=== PATIENT | female | born 1985 | race Caucasian/White ===

== ENCOUNTER 2016-08-27 18:44 | Emergency (ER) | payer SELFPAY ==
[2016-08-27 19:40] VITALS: TEMP 98.3
--- NOTE | 2016-08-27 20:27 | ED.PDOC ---
History of Present Illness - General Chief Complaint: Skin/Abrasion/Tear Time Seen by Provider: 08/27/16 18:44 Source: patient Exam Limitations: no limitations - History of Present Illness Initial Comments: The patient is a 31-year-old female presenting to the emergency room secondary to mild erythema and swelling to the anterior lateral left ankle starting approximately 24 hours ago. The patient does not remember injuring the ankle. She does not remember any bug bites. There is no obvious abscess underlying. There is mild swelling. There is mild tenderness to palpation. The pain is not made any worse with movement. There is no pain in the posterior calf. There is no shortness of breath. There is no swelling otherwise to the ankle. I see no skin lacerations. No other areas of injury. No fevers. Timing/Duration: 24 hours Severity: mild Improving Factors: nothing Worsening Factors: nothing Associated Symptoms: denies symptoms Allergies/Adverse Reactions: Allergies Lisinopril Allergy (Verified 08/27/16 19:46) Losartan Allergy (Verified 08/27/16 19:46) Prednisone Allergy (Verified 08/27/16 19:46) Review of Systems - Review of Systems Constitutional: States: no symptoms reported EENTM: States: no symptoms reported Respiratory: States: no symptoms reported Cardiology: States: no symptoms reported Gastrointestinal/Abdominal: States: no symptoms reported Genitourinary: States: no symptoms reported Musculoskeletal: States: see HPI Skin: States: see HPI Neurological: States: no symptoms reported Endocrine: States: no symptoms reported Hematologic/Lymphatic: States: no symptoms reported All other Systems: No Change from Baseline Past Medical History (General) - Patient Medical History Hx Seizures: No Hx Stroke: No Hx Dementia: No Hx Asthma: No Hx of COPD: No Hx Cardiac Disorders: No Hx Congestive Heart Failure: No Hx Pacemaker: No Hx Hypertension: Yes Hx Thyroid Disease: No Hx Diabetes: No Hx Gastroesophageal Reflux: No Hx Renal Disease: No Hx Cancer: No Hx of HIV: No Hx Hepatitis C: No Hx MRSA: No MRSA Source:: Wound - Vaccination History Hx Tetanus, Diphtheria Vaccination: No Hx Influenza Vaccination: No Hx Pneumococcal Vaccination: No Immunizations Up to Date: Yes - Social History Hx Tobacco Use: No Hx Chewing Tobacco Use: No Hx Alcohol Use: Yes - occasional Hx Substance Use: No Hx Substance Use Treatment: No Hx Depression: No Feels Threatened In Home Enviroment: No Feels Threatened In a Relationship: No Hx Physical Abuse: No Hx Emotional Abuse: No Hx Suspected Abuse: No - Female History Patient is a Female of Child Bearing Age (10 -59 yrs old): Yes Hx Last Menstrual Period: 08/11/14 Patient : No Expected Date of Delivery:: 08/04/13 - Triage Comment ED Triage Comment: no signs of distress, distal pulse sensation and motor function within normal limits, no complaints of SOB, no chest pain, no focal neuro deficits. Family Medical History - Family History Father Family History: No Known Living Status: Still Living Mother Family History: No Known Living Status: Still Living Physical Exam - Physical Exam General Appearance: Alert, Comfortable, No apparent distress Eye Exam: bilateral normal Neck: full range of motion Respiratory: lungs clear, normal breath sounds, no respiratory distress, no accessory muscle use Cardiovascular/Chest: normal peripheral pulses, regular rate, rhythm, no edema Peripheral Pulses: radial,right: 2+, radial,left: 2+, dorsalis pedis,right: 2+, dorsalis pedis,left: 2+, posterior tibialis,right: 2+, posterior tibialis,left: 2+ Gastrointestinal/Abdominal: other - obese Rectal Exam: deferred Back Exam: normal inspection, no CVA tenderness, no vertebral tenderness Extremity: normal range of motion, no pedal edema, no calf tenderness, normal capillary refill, swelling - see history of present illness Neurologic: alert, normal mood/affect, oriented x 3 Skin Exam: normal color Comments: Vital Signs - 24 hr 08/27/16 18:44 Temperature 98.3 F Pulse Rate [ 100 H pulse ox] Respiratory 16 Rate Blood Pressure 147/87 [left upper arm ] O2 Sat by Pulse 94 L Oximetry Progress - Progress Progress: 08/27/16 20:28 the patient is a 31-year-old female presenting due to what appears to be a noninfectious cellulitis the anterior/lateral left ankle for the last 24 hours. There are no clinical signs of a deep venous thrombosis. X-ray of the tib-fib were negative for any obvious pathology. I have encouraged the patient to outline the area of redness for following over the next few days. She can also take a good picture with her cell phone for comparison if needed at a later date. Motrin can be used for discomfort relief. she can follow up with her primary care doctor early next week if the area is worsening or not improving. She can return here to the emergency room if there is obvious acute worsening or new symptoms. Departure - Departure Clinical Impression: Ankle inflammation Qualifiers: Laterality: left Qualified Code(s): M19.072 - Primary osteoarthritis, left ankle and foot Disposition: Discharge to Home or Self Care Condition: Fair Departure Forms: ED Discharge - Pt. Copy, Patient Portal Self Enrollment Instructions: Tenosynovitis Diet: regular diet Activity: increase activity as tolerated Referrals: Mayra Alves NP [Primary Care Provider] - 1-2 Weeks Additional Instructions: the patient is a 31-year-old female presenting due to what appears to be a noninfectious cellulitis the anterior/lateral left ankle for the last 24 hours. There are no clinical signs of a deep venous thrombosis. X-ray of the tib-fib were negative for any obvious pathology. I have encouraged the patient to outline the area of redness for following over the next few days. She can also take a good picture with her cell phone for comparison if needed at a later date. Motrin can be used for discomfort relief. she can follow up with her primary care doctor early next week if the area is worsening or not improving. She can return here to the emergency room if there is obvious acute worsening or new symptoms.
[2016-08-27 20:48] VITALS: BP 167/89; O2SAT 97
--- NOTE | 2016-08-27 21:13 | RAD ---
EXAM DESCRIPTION: Tibia/Fibula,Left CLINICAL HISTORY: 31 years, Female, pain over distal 1/3 of fib, no trauma COMPARISON: None. FINDINGS: Two views the LEFT tibia and fibula were performed. No localized soft tissue swelling or radiopaque foreign body is identified. Bone mineralization is within normal limits. No fracture is seen. No bony erosion or periosteal reaction. The ankle mortise is congruent and the talar dome is intact. No suspicious calcification. IMPRESSION: No finding to explain this patient's fibular pain. Electronically signed by: Nusrat Melara MD 08/27/2016 9:13 PM CDT
== END 2016-08-27 20:50 | disposition home or self-care (01) ==
LOC: ER 18:44
DX: M19.072 Primary osteoarthritis, left ankle and foot (principal); L03.116 Cellulitis of left lower limb; I10 Essential (primary) hypertension; Z88.8 Allergy status to other drugs, medicaments and biological substances

== ENCOUNTER 2016-12-04 20:14 | Emergency (ER) | payer SELFPAY ==
[2016-12-04 20:41] VITALS: TEMP 99.2; O2SAT 96
--- NOTE | 2016-12-04 20:47 | ED.PDOC ---
History of Present Illness - General Chief Complaint: Lower Extremity Injury Stated Complaint: right calf pain from falling when playing volleyba Time Seen by Provider: 12/04/16 20:33 Source: patient, RN notes reviewed, Vital Signs reviewed Exam Limitations: no limitations - History of Present Illness Initial Comments: Patient comes in via private vehicle with c/o right calf pain. She was playing volleyball and when she came down on her R leg she felt a pop in her calf and a sudden onset of pain. Occurred: just prior to arrival Pain - Lower Extremity: severe: Right Calf Method of Injury: sports injury Improving Factors: immobilization Worsening Factors: movement Allergies/Adverse Reactions: Allergies Lisinopril Allergy (Verified 12/04/16 20:41) Losartan Allergy (Verified 12/04/16 20:41) Prednisone Allergy (Verified 12/04/16 20:41) Home Medications: Ambulatory Orders NK [NK] 12/04/16 Review of Systems - Review of Systems Constitutional: States: no symptoms reported Respiratory: States: no symptoms reported Cardiology: States: no symptoms reported Musculoskeletal: States: see HPI Skin: States: no symptoms reported Neurological: States: numbness - right lower leg down to ankle All other Systems: No Change from Baseline Past Medical History (General) - Patient Medical History Hx Seizures: No Hx Stroke: No Hx Dementia: No Hx Asthma: No Hx of COPD: No Hx Cardiac Disorders: No Hx Congestive Heart Failure: No Hx Pacemaker: No Hx Hypertension: Yes Hx Thyroid Disease: No Hx Diabetes: No Hx Gastroesophageal Reflux: No Hx Renal Disease: No Hx Cancer: No Hx of HIV: No Hx Hepatitis C: No Hx MRSA: No MRSA Source:: Wound Surgical History: Hysterectomy - Vaccination History Hx Tetanus, Diphtheria Vaccination: No Hx Influenza Vaccination: No Hx Pneumococcal Vaccination: No Immunizations Up to Date: No - Social History Hx Tobacco Use: No Hx Chewing Tobacco Use: No Hx Alcohol Use: Yes - social Hx Substance Use: No Hx Substance Use Treatment: No Hx Depression: No Feels Threatened In Home Enviroment: No Feels Threatened In a Relationship: No Hx Physical Abuse: No Hx Emotional Abuse: No Hx Suspected Abuse: No - Female History Hx Last Menstrual Period: 08/11/14 Patient : No Expected Date of Delivery:: 08/04/13 Family Medical History - Family History Father Family History: No Known Living Status: Still Living Mother Family History: No Known Living Status: Still Living Physical Exam - Physical Exam General Appearance: Alert, No apparent distress, Obese, Well Developed, Well Groomed, Well Hydrated, Well Nourished, Other - In obvious pain Cardiovascular/Respiratory: normal peripheral pulses, no respiratory distress Thigh/Hip: normal inspection, non-tender, no evidence of injury, normal ROM Leg: pain - Right calf, soft tissue tenderness - Right calf, swelling - Right calf Knee: normal inspection, non-tender, no evidence of injury, normal ROM Ankle: normal inspection, non-tender, no evidence of injury, normal ROM Foot: normal inspection, non-tender, no evidence of injury, normal ROM Neuro/Tendon: normal sensation, normal motor functions, normal tendon functions Mental Status: alert, oriented x 3 Skin: normal color, warm/dry Comments: Vital Signs - 8 hr 12/04/16 20:35 Temperature 99.2 F Pulse Rate [ 105 H monitor] Respiratory 20 Rate Blood Pressure 154/97 [Left Arm] O2 Sat by Pulse 96 Oximetry Progress - Progress Progress: 12/04/16 21:28 Discussed X-ray result. ? Soleus rupture. Will place in Ortho Boot and crutches Follow up with Dr. Alcaraz - EKG/XRAY/CT XRAY: Tib/Fib: no acute findings Procedures - Splinting Right Leg Pre-Made Type: Orthoboot Pre-Proc Neuro Vasc Exam: normal Post-Proc Neuro Vasc Exam: normal Departure - Departure Clinical Impression: Calf pain Qualifiers: Laterality: right Qualified Code(s): M79.661 - Pain in right lower leg ICD-10 Supporting Text: ? soleus rupture Time of Disposition: 21:39 Disposition: Discharge to Home or Self Care Condition: Good Departure Forms: ED Discharge - Pt. Copy, Patient Portal Self Enrollment Instructions: DI for Calf Muscle Strain Diet: resume usual diet Activity: other - Use crutches and Orthoboot when up and about Referrals: Mayra Alves NP [Primary Care Provider] - 1-2 Weeks Christo Alcaraz MD [Active Staff] - 1-5 Days Home Medications: Ambulatory Orders NK [NK] 12/04/16
[2016-12-04] MEDS ORDERED: ACETAMINOPHEN W/COD #3 TAB 1 EA TAB PO ONE (20:48)
--- NOTE | 2016-12-04 21:23 | RAD ---
EXAM DESCRIPTION: Tibia/Fibula,Right CLINICAL HISTORY: 31 years Female pain in calf/felt a pop COMPARISON: None. TECHNIQUE: RIGHT tibia fibula, two views FINDINGS: No acute fractures or dislocations are identified. No osseous destructive lesions. IMPRESSION: No acute fracture is identified. Electronically signed by: Suni Harrison 12/04/2016 9:22 PM CDT
[2016-12-04] MEDS ORDERED: ACETAMINOPHEN W/COD #3 TAB (ER Disp) PO ONE (21:48)
[2016-12-04 22:02] VITALS: BP 148/90
== END 2016-12-04 22:02 | disposition home or self-care (01) ==
LOC: ER 20:14
DX: M79.661 Pain in right lower leg (principal); Z88.8 Allergy status to other drugs, medicaments and biological substances

== ENCOUNTER → 2016-12-19 | Outpatient (CLI) | payer SELFPAY ==
--- NOTE | 2016-12-19 14:57 | MRI ---
Study: MRI of the Right Tibia/Fibula. Indication: MID CALF PAIN RT SIDE Technique: Multiplanar, multi sequence MRI of the right tibial/fibula was obtained without intravenous contrast. Comparison: Radiographs December 04, 2016. FINDINGS: Acute partial-thickness tearing of the mid substance of the plantaris tendon noted at the mid calf level where it is ill-defined but without definitive transection. There is an associated large intramuscular hematoma tracking between the medial gastrocnemius and medial soleus musculature. It measures up to 7.2 cm transverse by 2.5 cm AP by 16.5 cm craniocaudal. No tear of the soleus or gastrocnemius musculature. Mild circumferential subcutaneous edema. No acute fracture of the tibia or fibula. Red marrow reconversion noted. IMPRESSION: Partial thickness tearing of the mid plantaris tendon without complete transection. Associated large multilobulated hematoma tracks between the medial soleus and medial gastrocnemius medius musculature. Electronically signed by: Óscar Sheikh MD 12/19/2016 2:56 PM CDT
== END | disposition home or self-care (01) ==
LOC: MRI 11:00
PROVIDERS: ATTEND Orthopaedic Surgery
DX: M23.611 Other spontaneous disruption of anterior cruciate ligament of right knee (principal)

== ENCOUNTER → 2017-02-23 | Outpatient (CLI) | payer SELFPAY ==
--- NOTE | 2017-02-24 00:28 | RAD ---
EXAM DESCRIPTION: Hand,Right 3 Views CLINICAL HISTORY: HAND PAIN COMPARISON: None. FINDINGS: 3 views of the right hand. No acute fracture or dislocation. Normal osseous mineralization. Joint spaces preserved. IMPRESSION: 1. No acute fracture or dislocation. Electronically signed by: Willy Bowers 02/24/2017 12:27 AM CDT
== END | disposition home or self-care (01) ==
LOC: RAD 09:08
PROVIDERS: ATTEND Orthopaedic Surgery
DX: M79.641 Pain in right hand (principal)

== ENCOUNTER 2017-07-25 13:08 | Emergency (ER) | payer SELFPAY ==
[2017-07-25 13:19] VITALS: BP 142/98; TEMP 101; O2SAT 98
[2017-07-25] MEDS ORDERED: ACETAMINOPHEN 325 MG TAB PO ONE (13:22)
[2017-07-25] MEDS ORDERED: OSELTAMIVIR 75 MG CAP PO ONE (13:55)
[2017-07-25] MEDS ORDERED: AZITHROMYCIN 250 MG TAB PO ONE (13:55)
--- NOTE | 2017-07-25 14:00 | ED.PDOC ---
History of Present Illness - General Chief Complaint: Fever Stated Complaint: Cough, congestion, urgency Time Seen by Provider: 07/25/17 13:11 Source: patient Exam Limitations: no limitations - History of Present Illness Initial Comments: The patient is a 32-year-old female presenting to emergency room secondary to body aches along with a cough and a mild sore throat for the last 24 hours. Mild nausea. No yncope or near Syncope. No shortness of breath. No chest pain. No altered mental status. No nuchal rigidity or meningeal signs. Timing/Duration: 24 hours Severity: moderate Improving Factors: nothing Worsening Factors: nothing Associated Symptoms: cough, fever/chills, malaise Allergies/Adverse Reactions: Allergies Lisinopril Allergy (Verified 07/25/17 13:22) Anaphylaxis Losartan Allergy (Verified 12/04/16 20:41) Prednisone Adverse Reaction (Verified 07/25/17 13:22) Other Takes "her taste away" Home Medications: Ambulatory Orders Azithromycin 500 mg PO DAILY #5 tab 07/25/17 Oseltamivir Capsule [Tamiflu] 75 mg PO BID 5 Days #10 capsule 07/25/17 Terbinafine HCl 250 mg PO DAILY 07/25/17 hydrOXYzine HCl [Atarax] 25 mg PO BEDTIME 07/25/17 Review of Systems - Review of Systems Constitutional: States: fever, malaise EENTM: States: throat pain Respiratory: States: cough, wheezing Cardiology: States: no symptoms reported Gastrointestinal/Abdominal: States: no symptoms reported Genitourinary: States: no symptoms reported Musculoskeletal: States: back pain - mild left back pain Skin: States: no symptoms reported Neurological: States: headache - mild Endocrine: States: no symptoms reported All other Systems: No Change from Baseline Past Medical History (General) - Patient Medical History Hx Seizures: No Hx Stroke: No Hx Dementia: No Hx Asthma: No Hx of COPD: No Hx Cardiac Disorders: No Hx Congestive Heart Failure: No Hx Pacemaker: No Hx Hypertension: Yes Hx Thyroid Disease: No Hx Diabetes: No Hx Gastroesophageal Reflux: No Hx Renal Disease: No Hx Cancer: No Hx of HIV: No Hx Hepatitis C: No Hx MRSA: No MRSA Source:: Wound Surgical History: Hysterectomy, other - Vaccination History Hx Tetanus, Diphtheria Vaccination: No Hx Influenza Vaccination: No Hx Pneumococcal Vaccination: No - Social History Hx Tobacco Use: No Hx Chewing Tobacco Use: No Hx Alcohol Use: Yes - social Hx Substance Use: No Hx Substance Use Treatment: No Hx Depression: No Hx Physical Abuse: No Hx Emotional Abuse: No Hx Suspected Abuse: No - Female History Patient is a Female of Child Bearing Age (10 -59 yrs old): No - hysterectomy Hx Last Menstrual Period: 08/11/14 Patient : No Expected Date of Delivery:: 08/04/13 Family Medical History - Family History Father Family History: No Known Living Status: Still Living Hx Cardiac Disease: Yes Mother Family History: No Known Living Status: Still Living Hx Cardiac Disease: Yes Physical Exam - Physical Exam General Appearance: Alert, No apparent distress Eye Exam: bilateral normal Ears, Nose, Throat: hearing grossly normal, pharyngeal erythema Neck: full range of motion Respiratory: no respiratory distress, no accessory muscle use, other - mild scattered wheezes. Minimally productive cough. No respiratory distress. 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 No history of any asthma. We do not have any available flu test. Urinalysis is clear. The patient will be covered for possible etiologies of bronchitis with azithromycin and Tamiflu. She can use Motrin to control any fever. She needs to keep herself well hydrated. ER warnings were given for any significant worsening. She can follow-up with her primary care doctor later this week for reevaluation. - Results/Orders Results/Orders: Laboratory Results - last 24 hr 07/25/17 07/25/17 13:25 13:27 Urine Color Yellow Urine Appearance Clear Urine pH 6.0 Ur Specific [place] 1.020 Urine Protein Trace Urine Glucose (UA) Negative Urine Ketones Negative Urine Blood Small H Urine Nitrite Negative Urine Bilirubin Negative Urine Urobilinogen 0.2 Ur Leukocyte Esterase Negative Urine RBC 0-1 Urine WBC 0 Ur Epithelial Cells 5-10 Urine Bacteria 0 Urine HCG, Qual Negative Departure - Departure Clinical Impression: Bronchitis Disposition: Discharge to Home or Self Care Condition: Fair Departure Forms: ED Discharge - Pt. Copy, Patient Portal Self Enrollment Instructions: DI for Acute Bronchitis Diet: regular diet Activity: increase activity as tolerated Referrals: Sharron Kaminski NP [Primary Care Provider] - 1-2 Weeks Prescriptions: Azithromycin 500 mg PO DAILY #5 tab Oseltamivir Capsule [Tamiflu] 75 mg PO BID 5 Days #10 capsule Home Medications: Ambulatory Orders Azithromycin 500 mg PO DAILY #5 tab 07/25/17 Oseltamivir Capsule [Tamiflu] 75 mg PO BID 5 Days #10 capsule 07/25/17 Terbinafine HCl 250 mg PO DAILY 07/25/17 hydrOXYzine HCl [Atarax] 25 mg PO BEDTIME 07/25/17 Additional Instructions: the patient's 32-year-old female presenting to the emergency room secondary to fevers and body aches along with cough and some mild wheezing. No history of any asthma. We do not have any available flu test. Urinalysis is clear. The patient will be covered for possible etiologies of bronchitis with azithromycin and Tamiflu. She can use Motrin to control any fever. She needs to keep herself well hydrated. ER warnings were given for any significant worsening. She can follow-up with her primary care doctor later this week for reevaluation.
== END 2017-07-25 14:11 | disposition home or self-care (01) ==
LOC: ER 13:08
DX: J40 Bronchitis, not specified as acute or chronic (principal); I10 Essential (primary) hypertension
CPT/HCPCS: 81001; 81025; Q0144

== ENCOUNTER → 2019-10-04 | Outpatient (CLI) | payer OTHER ==
--- NOTE | 2019-10-04 09:50 | US ---
EXAM DESCRIPTION: Liver: ULTRASOUND. CLINICAL HISTORY: ELEVATED LIVER ENZYMES COMPARISON: None. TECHNIQUE: Transabdominal scannin-dimensional and Doppler modes. FINDINGS: Gallbladder: normal size, shape, echogenicity; no intraluminal stones or sludge. No fluid around the gallbladder. No wall thickening. 2.7 mm. Non-tender with transducer pressure. Common bile duct: caliber 4.4 mm within normal limits. Liver: Increased echogenicity; contour liver capsule smooth where seen. No fluid around the liver. Intrahepatic biliary ducts normal caliber. Doppler hepatopedal flow portal vein. 11 mm. Long axis right lobe cm Pancreas: normal size and echogenicity. Duct not seen. Right kidney: long axis measures 11.7 cm. Normal echogenicity. Normal cortical thickness. No echogenic stones or hydronephrosis. Aorta proximal: 1.7 cm normal caliber. IMPRESSION: 1. Mild steatosis of the liver with normal size. Physiologic ducts and vascularity. No focal lesions. Smooth capsule with no ascites. 2. Gallbladder and common bile duct are negative. 3. Pancreas and right kidney unremarkable. Normal caliber proximal abdominal aorta. Electronically signed by: Vishnu Sol MD 10/04/2019 9:49 AM CDT
== END ==
LOC: US 07:52
PROVIDERS: ATTEND Nurse Practitioner Family
DX: K76.0 Fatty (change of) liver, not elsewhere classified (principal)

== ENCOUNTER 2020-03-01 19:35 | Emergency (ER) | payer BC, OTHER ==
--- NOTE | 2020-03-01 20:25 | ED.PDOC ---
History of Present Illness - General Chief Complaint: General Stated Complaint: congestion, no taste/smell Time Seen by Provider: 03/01/20 19:46 Source: patient Exam Limitations: no limitations - History of Present Illness Initial Comments: The patient is a 34-year-old female presents emergency room secondary to symptoms of her chronic sinusitis now coupled with a loss of smell today. No other symptoms. No fever. Mild pressure in her ears which is not new. No shortness of breath. No significant cough. No definitive close relationships with coronavirus. Timing/Duration: 24 hours Severity: mild Improving Factors: nothing Worsening Factors: nothing Associated Symptoms: denies symptoms Allergies/Adverse Reactions: Allergies Lisinopril Allergy (Verified 07/25/17 13:22) Anaphylaxis Losartan Allergy (Verified 12/04/16 20:41) Prednisone Adverse Reaction (Verified 07/25/17 13:22) Other Takes "her taste away" Home Medications: Ambulatory Orders Azithromycin 500 mg PO DAILY #5 tab 07/25/17 Oseltamivir Capsule [Tamiflu] 75 mg PO BID 5 Days #10 capsule 07/25/17 Terbinafine HCl 250 mg PO DAILY 07/25/17 hydrOXYzine HCl [Atarax] 25 mg PO BEDTIME 07/25/17 predniSONE [Prednisone] 20 mg PO DAILY #4 tab 03/01/20 Review of Systems - Review of Systems Constitutional: States: no symptoms reported EENTM: States: nose congestion Respiratory: States: no symptoms reported Cardiology: States: no symptoms reported Gastrointestinal/Abdominal: States: no symptoms reported Genitourinary: States: no symptoms reported Musculoskeletal: States: no symptoms reported Skin: States: no symptoms reported Neurological: States: no symptoms reported Endocrine: States: no symptoms reported Hematologic/Lymphatic: States: no symptoms reported All other Systems: No Change from Baseline Past Medical History (General) - Patient Medical History Hx Seizures: No Hx Stroke: No Hx Dementia: No Hx Asthma: No Hx of COPD: No Hx Cardiac Disorders: No Hx Congestive Heart Failure: No Hx Pacemaker: No Hx Hypertension: Yes Hx Thyroid Disease: No Hx Diabetes: No Hx Gastroesophageal Reflux: No Hx Renal Disease: No Hx Cancer: No Hx of HIV: No Hx Hepatitis C: No Hx MRSA: No MRSA Source:: Wound - Vaccination History Hx Tetanus, Diphtheria Vaccination: No Hx Influenza Vaccination: No Hx Pneumococcal Vaccination: No - Social History Hx Tobacco Use: No Hx Chewing Tobacco Use: No Hx Alcohol Use: Yes - social Hx Substance Use: No Hx Substance Use Treatment: No Hx Depression: No Hx Physical Abuse: No Hx Emotional Abuse: No Hx Suspected Abuse: No - Female History Hx Last Menstrual Period: 08/11/14 Patient : No Expected Date of Delivery:: 08/04/13 Family Medical History - Family History Father Family History: No Known Living Status: Still Living Hx Cardiac Disease: Yes Mother Family History: No Known Living Status: Still Living Hx Cardiac Disease: Yes Physical Exam - Physical Exam General Appearance: Alert, Comfortable, No apparent distress Eye Exam: bilateral normal Ears, Nose, Throat: hearing grossly normal, normal pharynx, other - Nares are boggy. Bilateral tympanic membranes show increased pressure but no significant infection or fluid. 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 Concern is for coronavirus. She did test positive for it here today. The patient is going to be started on oral prednisone for a 5-day course for her chronic problems as well as the coronavirus. This should help relieve pressure from the ear canals. She needs to continue taking oral Zyrtec or Ailyn or Xyzal. She needs to keep well-hydrated. She needs to isolate from other people. She needs to contact her primary care doctor next week to establish her preferred plan of care for the next few weeks. ER warnings are given. [place] [id number] 03/01/20 20:26 Departure - Departure Clinical Impression: Coronavirus infection Allergic rhinitis Qualifiers: Allergic rhinitis trigger: unspecified Allergic rhinitis seasonality: seasonal Qualified Code(s): J30.2 - Other seasonal allergic rhinitis Disposition: Discharge to Home or Self Care Condition: Fair Departure Forms: ED Discharge - Pt. Copy, Patient Portal Self Enrollment Instructions: Coronavirus Disease 2019 (COVID-19) Diet: regular diet Activity: increase activity as tolerated Referrals: Jovanni Choudhary III, MD [Primary Care Provider] - 1-2 Weeks Prescriptions: predniSONE [Prednisone] 20 mg PO DAILY #4 tab Home Medications: Ambulatory Orders Azithromycin 500 mg PO DAILY #5 tab 07/25/17 Oseltamivir Capsule [Tamiflu] 75 mg PO BID 5 Days #10 capsule 07/25/17 Terbinafine HCl 250 mg PO DAILY 07/25/17 hydrOXYzine HCl [Atarax] 25 mg PO BEDTIME 07/25/17 predniSONE [Prednisone] 20 mg PO DAILY #4 tab 03/01/20 Additional Instructions: The patient is a 34-year-old female with a history of chronic recurrent allergic sinusitis and rhinitis presenting with the additional symptom of decreased smell today. Concern is for coronavirus. She did test positive for it here today. The patient is going to be started on oral prednisone for a 5-day course for her chronic problems as well as the coronavirus. This should help relieve pressure from the ear canals. She needs to continue taking oral Zyrtec or Ailyn or Xyzal. She needs to keep well-hydrated. She needs to isolate from other people. She needs to contact her primary care doctor next week to establish her preferred plan of care for the next few weeks. ER warnings are given.
[2020-03-01] MEDS: predniSONE 20 MG TAB PO ONE ×2 (20:36→20:39)
[2020-03-01 20:58] VITALS: O2SAT 98
[2020-03-01 21:03] VITALS: BP 127/104; TEMP 98.2
== END 2020-03-01 20:50 | disposition home or self-care (01) ==
LOC: ER 19:35
DX: U07.1 COVID-19 (principal); J30.2 Other seasonal allergic rhinitis; I10 Essential (primary) hypertension; Z20.828 Contact with and (suspected) exposure to other viral communicable diseases

== ENCOUNTER → 2020-05-29 | Outpatient (CLI) | payer BC | LOC: LAB.O 16:45 | PROVIDERS: ATTEND Specialist | DX: E66.01 Morbid (severe) obesity due to excess calories (principal) ==